=== PATIENT | female | born 1970 | race Caucasian/White ===

== ENCOUNTER 2017-03-04 05:47 | Day surgery (SDC) | payer OTHER ==
[2017-03-04] MEDS ORDERED: ceFAZolin 2 GM/DEXTROSE 100 ML IV ONE (06:00)
[2017-03-04] MEDS ORDERED: LIDOCAINE 1% 2 ML INJ ONE (06:52)
[2017-03-04] MEDS ORDERED: fentaNYL 100 MCG/2 ML INJ ONE ×3 (06:59→09:16)
[2017-03-04] MEDS ORDERED: PROPOFOL 200 MG/20 ML VIAL ONE ×2 (06:59)
[2017-03-04] MEDS ORDERED: BUPIVACAINE/EPI 0.25% 30 ML SDV ONE (07:00)
[2017-03-04] MEDS ORDERED: IOPAMIDOL (ISOVUE-370) 150 ML BTL IV ONE (07:00)
[2017-03-04] MEDS ORDERED: MIDAZOLAM 2 MG/2 ML VIAL ONE (07:11)
[2017-03-04] MEDS ORDERED: IOPAMIDOL (ISOVUE-300) 150 ML BTL ONE (07:21)
[2017-03-04] MEDS ORDERED: IOTHALAMATE MEG (CONRAY) 50 ML VIAL IV ONE (07:27)
[2017-03-04] MEDS ORDERED: PROMETHAZINE HCL 25 MG/ML INJ ONE (09:16)
[2017-03-04] MEDS ORDERED: HYDROmorphONE/DILAUDID 1 MG/ML SYR ONE (09:58)
[2017-03-04] MEDS ORDERED: METOCLOPRAMIDE 10 MG/2 ML VIAL ONE ×2 (10:45→11:29)
[2017-03-04] MEDS ORDERED: HYDROmorphONE/DILAUDID 2 MG/ML INJ ONE (10:45)
[2017-03-04] MEDS ORDERED: OXYCODONE/APAP 5/325 TAB ONE (11:27)
--- NOTE | 2017-03-05 03:21 | GOP ---
[f rep st] OPERATIVE REPORT DATE OF OPERATION: 03/04/2017 SURGEON: Avel Presley MD COMPENSATION ADJUSTER: JYOTSNA Bansal. ANESTHESIA: General endotracheal. ANESTHESIOLOGIST: Dr. Huff. PREOPERATIVE DIAGNOSIS: Biliary colic, gallbladder polyp. POSTOPERATIVE DIAGNOSIS: Chronic cholecystitis with gallbladder polyp. PROCEDURE PERFORMED: Laparoscopic cholecystectomy with intraoperative cholangiogram. FINDINGS: Many adhesions from multiple previous surgeries successfully lysed. Multiple adhesions t o the gallbladder from both omentum and peritoneum. Critical view was obtained. Intraoperative cho langiogram was performed which showed proper radicalization of the biliary tree without any filling defects and good spillage of bile into the duodenum. SPECIMENS: Gallbladder. ESTIMATED BLOOD LOSS: 5 cc. DESCRIPTION OF PROCEDURE: The patient was greeted in the preoperative suite. Once again, risks, be nefits, and alternatives were discussed. Consent was signed. She was then brought back to the oper ative suite and placed on the OR table in a supine position. After all anesthesia machines, includi ng SCDs, were on and functioning, a [employer] time-out was performed. General anest hesia was then induced without incident. The patient's abdomen was then prepped and draped in a typ ical sterile fashion. Antibiotics were given on-call to the operating room. I entered the abdomen using a vertical incision just inferior to the umbilicus through which I passed a Veress needle. I then achieved a pneumoperitoneum to 15 mmHg which was well tolerated by the patient. Through this i ncision I placed a 12 mm Visiport. Once into the abdomen, I placed 3 additional 5 mm ports, 1 in th e subxiphoid, 2 in the right upper quadrant. She had a fair amount of adhesions, including transver se colon and omentum to the anterior abdominal wall. These were successfully taken down sharply. A fter successful adhesiolysis, I identified the dome of the gallbladder, once again fairly adherent t o underlying small bowel. I proceeded to gently take off the underlying duodenum at this site. Onc e this was done, I successfully retracted the gallbladder over the liver. I identified the infundib ulum using a combination of blunt dissection and cautery. I identified 2, and only 2, structures le ading toward the gallbladder. After a critical view was obtained, I used the Santos clamp and cathet er to perform a cholangiogram which showed good filling of the biliary tree without any choledocholi thiasis and good spillage of bile into the duodenum. After this was done, I both clipped the artery and duct and divided them sharply. After that, I took the gallbladder off the liver bed using the Harmonic Scalpel. It was then placed in an EndoCatch bag and removed. Hemostasis was achieved in t he area with gentle pressure and Harmonic scalpel. The area was then irrigated and the clips were i nspected and noted to be in proper position. Anesthetic was then infiltrated into all port sites wh ich were removed under direct visualization. My infraumbilical 12 mm port site was then closed with an interrupted [id number] 0 Vicryl stitch noting excellent fascial reapproximation. The skin was then closed with 4-0 Monocryl over which Dermabond was placed. The patient was then extubated i n the operative suite and taken to the PACU in satisfactory condition. All counts were reported as correct x2. DRAINS: None. /[id number]/MODL
== END 2017-03-04 13:20 | disposition home or self-care (01) ==
LOC: FSGY 05:47
PROVIDERS: ATTEND Surgery
PROC: BF141ZZ Fluoroscopy of Gallbladder, Bile Ducts and Pancreatic Ducts using Low Osmolar Contrast (ICD-10-PCS; principal; 2017-03-04 07:30)
PROC: 0FT44ZZ Resection of Gallbladder, Percutaneous Endoscopic Approach (ICD-10-PCS; principal; 2017-03-04 07:30)
DX: K80.10 Calculus of gallbladder with chronic cholecystitis without obstruction (principal); E03.9 Hypothyroidism, unspecified; Z85.43 Personal history of malignant neoplasm of ovary; Z90.13 Acquired absence of bilateral breasts and nipples; Z90.710 Acquired absence of both cervix and uterus
CPT/HCPCS: J0690; J1170; J2250; J2550; J2704; J2765; J3010; Q9961; Q9967

== ENCOUNTER → 2019-01-23 | Outpatient (CLI) | payer OTHER | LOC: FIMAGING 10:08 | PROVIDERS: ATTEND Internal Medicine | DX: Z13.820 Encounter for screening for osteoporosis (principal); M85.89 Other specified disorders of bone density and structure, multiple sites ==